=== PATIENT | male | born 1985 ===

== ENCOUNTER 2023-11-06 10:30 | Emergency (ER) | payer OTHER, SELFPAY ==
[2023-11-06] MEDS: PROPARACAINE 0.5% OPHTH SOL 1 DROPS EYE-BOTH (18:04)
[2023-11-06] MEDS: FLUORESCEIN 1 MG STRIP EYE-BOTH (18:04)
--- NOTE | 2023-11-06 18:18 | ED.EYEPROB ---
HPI - Eye Problem <Toyin Cunningham DO - Last Filed: 11/08/23 07:49> General Chief complaint: Eye Problems Stated complaint: left pupil dialated Time Seen by Provider: 11/06/23 17:37 Source: patient, RN notes reviewed and old records reviewed Mode of arrival: Ambulatory Limitations: no limitations History of Present Illness HPI Narrative: 38-year-old male wears glasses with history of anxiety. Patient presents with complaint of pupil dilation states initially left pupil dilated than the opposite pupil slowly over time. Initially had a little bit discomfort in the left eye. No longer. No headaches, he notes little bit of photophobia and bright sunlight but otherwise tolerating quite well. No other pain no other vision changes. Patient denies any nausea or vomiting. Has not had similar symptoms in the past. Denies any other symptoms. No headaches, no neck pain, no fevers. Chest pain or shortness of breath. Normal gait and ambulation. No GI or urinary symptoms. Patient notes he recently started propranolol 20 mg twice daily 2 days ago. He has not on any other medications no other eyedrops. States he wears glasses. Does follow with Ophthalmology. Has had his eyes dilated in the past without issue. Is not on any eyedrops. No prior eye surgeries. No reported drug allergies. No regular tobacco, no regular alcohol, no recreational drugs. Gets his primary care through [facility]. Review of Systems <Toyin Cunningham DO - Last Filed: 11/08/23 07:49> Review of Systems ROS Unobtainable: All systems reviewed & are unremarkable except as noted in HPI and below Exam <Toyin Cunningham - Last Filed: 11/08/23 07:49> Narrative Exam Narrative: Temperature 97.8?, pulse 57, blood pressure 120/74 respirations 16 O2 sat 98% room air. GEN: well nourished, well appearing male, alert and oriented x 3, patient appears to be in mild distress. HEENT: Atraumatic, pupils are equal, round, dilated bilaterally, extraocular movements are intact, nares are clear, TMs are clear with no fluid, there is no conjunctival pallor. Throat is clear without any exudates, erythema, tonsillar enlargement or uvular deviation. Visual acuity: right 20/20, left 20/40 without correction. IOP: 11 Mm Hg, Left 13 mm Hg General: no globe trauma Eyelids: normal inspection, eyelids everted for exam on bilaterally. Conjunctiva/Sclera: normal inspection Corneas: normal inspection, examined with fluroscein on bilaterally with no uptake.. EOM: intact, no palsy/entrapment Pupils: PER, dilated bilaterally tonight to 10 mm. Nonreactive to light bilaterally, pupil normal otherwise normal shape Anterior Chambers: normal inspection, no hypema Posterior: normal fundoscopic on bilaterally HEART: Regular rate and rhythm without murmur, clicks, rubs. LUNGS:Lungs clear to auscultation, no wheezes, rales, crackles, chest moves symmetrically ABD:bowel sounds normal, soft, non-tender, no guarding, rebound, rigidity, no masses noted, no hepatosplenomegaly MSCL: Non-tender, no muscle atrophy, muscles strength 5/5 upper and lower extremities, full range of motion, normal gait NEURO:CN 2-12 intact, sensation normal. Initial Vital Signs Initial Vital Signs: Vital Signs Pulse Rate 54 L 11/06/23 19:45 Respiratory Rate 16 11/06/23 19:45 Blood Pressure 112/72 11/06/23 19:45 Pulse Oximetry 99 11/06/23 19:45 <Toyin Kee MD - Last Filed: 11/07/23 04:05> Initial Vital Signs Initial Vital Signs: Vital Signs Pulse Rate 54 L 11/06/23 19:45 Respiratory Rate 16 11/06/23 19:45 Blood Pressure 112/72 11/06/23 19:45 Pulse Oximetry 99 11/06/23 19:45 Course <Toyin Cunningham DO - Last Filed: 11/08/23 07:49> Orders Ordered: Discontinued Medications Fluorescein Sodium (Fluorescein 1 Mg Strip) 1 mg EYE-BOTH NOW ONE Stop: 11/06/23 17:41 Last Admin: 11/06/23 18:04 Dose: 1 mg Documented By: Proparacaine HCl (Proparacaine 0.5% Ophth Maye) 1 drops EYE-BOTH NOW ONE Stop: 11/06/23 17:41 Last Admin: 11/06/23 18:04 Dose: 1 drop Documented By: <Toyin Kee MD - Last Filed: 11/07/23 04:05> Orders Ordered: Discontinued Medications Fluorescein Sodium (Fluorescein 1 Mg Strip) 1 mg EYE-BOTH NOW ONE Stop: 11/06/23 17:41 Last Admin: 11/06/23 18:04 Dose: 1 mg Documented By: Proparacaine HCl (Proparacaine 0.5% Ophth Maye) 1 drops EYE-BOTH NOW ONE Stop: 11/06/23 17:41 Last Admin: 11/06/23 18:04 Dose: 1 drop Documented By: MDM - Eye Problem <Toyin Cunningham DO - Last Filed: 11/08/23 07:49> Imaging Data CT scan - head: Radiologist's Impression: Maco Rouse??38??M??1985 ? Allergy/Adv: Not Recorded Close Head CT (Signed) Kurt Luna - 11/06/23 Launch?[place] [address] CT Scan Report Signed Patient: Maco Rouse MR#: [id number] : 1985 Acct:[id number] Age/Sex: 38 / M Date of Service: 11/06/23 Loc: ED Accession Number: [id number] Procedure: CT head/brain wo con Ordering Provider: Toyin Cunningham D.O. PROCEDURE: CT HEAD/BRAIN WO CON INDICATIONS: dilated pupils, no trauma TECHNIQUE: Noncontrast 4.5 mm thick angled axial sections acquired from the foramen magnum to the vertex, with coronal and sagittal reformats. For radiation dose reduction, the following was used: automated exposure control, adjustment of mA and/or kV according to patient size. COMPARISON: None. FINDINGS: Image quality: Diagnostic. CSF spaces: Basal cisterns are patent. No extra-axial fluid collections. Ventricles are normal in size and shape. Brain: No midline shift. No intracranial masses or hemorrhage. Soni-white matter interface is normal. Skull and face: Calvarium and visualized facial bones are intact, without suspicious lesions. Sinuses: Visualized sinuses and mastoids are clear. IMPRESSION: CT head without acute intracranial abnormalities. No mass or mass effect visualized. Dictated by: Kurt Luna M.D. on 11/06/2023 at 19:18 Approved by: Kurt Luna M.D. on 11/06/2023 at 19:19 [facility] Narrative Medical decision making narrative: 38-year-old male with dilated eyes bilaterally. No recent exam, no drops. Patient did start propranolol in the last 2 days suspect that this maybe the source of his symptoms but CT head was obtained. Patient's exam was otherwise appropriate. Dr. Kee -care of patient is signed out to me by Dr. Cunningham. CT brain negative for acute findings. Patient reassessed, resting comfortably in ED bed. Patient informed of CT results, recommended following up with the eye doctor for formal dedicated my exam. Patient expressed understanding of plan and is in agreement at this time. <Toyin Kee MD - Last Filed: 11/07/23 04:05> [facility] Narrative Medical decision making narrative: 38-year-old male with dilated eyes bilaterally. No recent exam, no drops. Patient did start propranolol in the last 2 days suspect that this maybe the source of his symptoms but CT head was obtained. Dr. Kee -care of patient is signed out to me by Dr. Cunningham. CT brain negative for acute findings. Patient reassessed, resting comfortably in ED bed. Patient informed of CT results, recommended following up with the eye doctor for formal dedicated my exam. Patient expressed understanding of plan and is in agreement at this time. Discharge Plan Departure Patient Disposition: Home Clinical Impression: Fixed dilated pupils of both eyes Activity Restrictions/Additional Instructions: Your brain CT today was normal. There are no masses, bleeds, other findings that would explain why her pupils are dilated. Follow up Wednesday with Ophthalmology. Call [phone] 1st thing Wednesday morning for follow up if your symptoms have not resolved. Please stop the propranolol until your symptoms have resolved. I suspect this is the source of your symptoms. If they are persistent you do need to follow-up. Please return for sudden changes to vision, new eye pain, severe headaches, nausea or vomiting, difficulty with movement, speech, ambulation or other new or concerning changes. Referrals: Lj Seo MD [Physician] - Stand Alone Forms: Patient Portal/API
--- NOTE | 2023-11-06 18:57 | DI.CT.S_ITS ---
PROCEDURE: CT HEAD/BRAIN WO CON INDICATIONS: dilated pupils, no trauma TECHNIQUE: Noncontrast 4.5 mm thick angled axial sections acquired from the foramen magnum to the vertex, with coronal and sagittal reformats. For radiation dose reduction, the following was used: automated exposure control, adjustment of mA and/or kV according to patient size. COMPARISON: None. FINDINGS: Image quality: Diagnostic. CSF spaces: Basal cisterns are patent. No extra-axial fluid collections. Ventricles are normal in size and shape. Brain: No midline shift. No intracranial masses or hemorrhage. Soni-white matter interface is normal. Skull and face: Calvarium and visualized facial bones are intact, without suspicious lesions. Sinuses: Visualized sinuses and mastoids are clear. IMPRESSION: CT head without acute intracranial abnormalities. No mass or mass effect visualized. Dictated by: Kurt Luna M.D. on 11/06/2023 at 19:18 Approved by: Kurt Luna M.D. on 11/06/2023 at 19:19
[2023-11-06 19:45] VITALS: BP 112/72; PULSE 54; RESP 16; O2SAT 99
== END 2023-11-06 19:47 | disposition home or self-care (01) ==
PROVIDERS: Emergency Provider Emergency Medicine
DX: H57.04 Mydriasis (principal)
CPT/HCPCS: 70450; 99281; 99283